=== PATIENT | male | born 1955 | race Caucasian/White ===

== ENCOUNTER 2021-03-03 05:39 | Day surgery (SDC) | payer OTHER ==
[~2021-03-03] VITALS: Ht 179.1 cm; Wt 88.0 kg
[~2021-03-03 05:39] MED LIST: ALBU1.25 NEB; ALBU90AE INH; AMLO2.5T5 PO; ASPI81TA45 PO; DIPH25CA61 PO; EPLE50TA3 PO; LABE100T6 PO; LISI40TA9 PO; PRAV40TA2 PO; TAMS-11 PO
[2021-03-03 06:13] VITALS: BP 138/75
[2021-03-03] MEDS ORDERED: MIDAZOLAM 1 MG/ML, 2ML ONE (06:29)
[2021-03-03] MEDS ORDERED: LACTATED RINGERS 1,000 ML IV SCH (06:30)
[2021-03-03] MEDS ORDERED: FENTANYL PF 250 MCG/5ML ONE (06:30)
[2021-03-03] MEDS ORDERED: CHLORHEXIDINE 15 ML UDC PO ONE (06:30)
[2021-03-03] MEDS ORDERED: PROPOFOL 10 MG/ML, 20ML ONE (06:34)
[2021-03-03] MEDS ORDERED: CEFAZOLIN 1,000 MG ONE (06:34)
[2021-03-03] MEDS ORDERED: GLYCOPYRROLATE 0.2MG/1ML, 5ML ONE (06:34)
[2021-03-03] MEDS ORDERED: NEOSTIGMINE 1 MG/ML, 10ML ONE (06:34)
[2021-03-03] MEDS ORDERED: ROCURONIUM 10MG/ML,5ML ONE (06:34)
[2021-03-03] MEDS ORDERED: morphine SULFATE 10 MG/ML, 1ML IVPush PRN (07:30)
[2021-03-03] MEDS ORDERED: ACETAMINOPHEN 325 MG TABLET PO PRN (07:30)
[2021-03-03] MEDS ORDERED: hydrALAzine 20 MG/ML, 1ML IV PRN (07:30)
[2021-03-03] MEDS ORDERED: FENTANYL PF 100 MCG/2ML IV PRN (07:30)
[2021-03-03] MEDS ORDERED: LABETALOL 5MG/ML, 20ML IV PRN (07:30)
[2021-03-03] MEDS ORDERED: HYDROmorphone 1 MG/ML, 1ML INJ IVPush PRN (07:30)
[2021-03-03] MEDS ORDERED: ONDANSETRON 2MG/ML, 2ML IVPush PRN (07:30)
[2021-03-03] MEDS ORDERED: OMNIPAQUE 350 MG/ML, 50 ML BOTTLE ONE (07:41)
[2021-03-03] MEDS: OXYcodone 5 MG/5 ML ORAL.SOL UDC PO PRN ×4 (10:01→18:45)
[2021-03-03] MEDS ORDERED: MEPERIDINE/PF 25MG/ML,1ML ONE ×2 (10:34→12:52)
[2021-03-03] MEDS: MEPERIDINE/PF 25MG/0.5ML IVPush PRN ×2 (10:40→13:00)
[2021-03-03] MEDS ORDERED: OPIUM/BELLADONNA SUPP.RECT 16.2-30 MG ONE (12:23)
[2021-03-03] MEDS ORDERED: OPIUM/BELLADONNA SUPP.RECT 16.2-30 MG PR ONE (12:30)
== END 2021-03-03 20:50 | disposition home or self-care (01) ==
LOC: OUT 05:39
PROVIDERS: ATTEND Urology
DX: N28.89 Other specified disorders of kidney and ureter (principal); C65.2 Malignant neoplasm of left renal pelvis; N20.0 Calculus of kidney; I10 Essential (primary) hypertension; J44.9 Chronic obstructive pulmonary disease, unspecified; E78.5 Hyperlipidemia, unspecified; Z20.822 Contact with and (suspected) exposure to COVID-19; Z79.82 Long term (current) use of aspirin; Z79.899 Other long term (current) drug therapy; Z87.891 Personal history of nicotine dependence; Z88.0 Allergy status to penicillin; Z88.2 Allergy status to sulfonamides
CPT/HCPCS: 52354; 74420; 87635; 88112; 88305; 93005; C1758; C1769; J0690; J2175; J2250; J2405; J2704; J2710; J3010; J7120; Q9967

== ENCOUNTER 2021-05-26 05:21 | Inpatient (IN) | payer OTHER ==
[~2021-05-26] VITALS: Ht 180.3 cm; Wt 84.2 kg
[2021-05-26] MEDS ORDERED: CHLORHEXIDINE 15 ML UDC ONE (06:10)
[2021-05-26] MEDS ORDERED: LACTATED RINGERS 1,000 ML IV SCH (06:30)
[2021-05-26 06:46] VITALS: BP 114/76
[2021-05-26] MEDS ORDERED: BUPIVACAINE/PF 0.25% ONE (06:52)
[2021-05-26] MEDS ORDERED: FLUORESCEIN SODIUM 500 MG/5 ML ONE (06:52)
[2021-05-26] MEDS ORDERED: EPINEPHRINE 1 MG/ML, 1ML ONE ×2 (06:52→08:28)
[2021-05-26] MEDS ORDERED: THROMBIN 5,000 UNIT VIAL TP ONE (06:52)
[2021-05-26] MEDS ORDERED: FENTANYL PF 250 MCG/5ML ONE ×3 (07:06→09:35)
[2021-05-26] MEDS ORDERED: LORazepam 2 MG/ML, 1ML IVPush PRN (07:30)
[2021-05-26] MEDS ORDERED: MEPERIDINE/PF 25MG/0.5ML IVPush PRN (07:30)
[2021-05-26] MEDS ORDERED: hydrALAzine 20 MG/ML, 1ML IV PRN (07:30)
[2021-05-26] MEDS ORDERED: OXYcodone 5 MG/5 ML ORAL.SOL UDC PO PRN (07:30)
[2021-05-26] MEDS ORDERED: METHOCARBAMOL 1,000 MG in DEXTROSE 5% 100 ML IV PRN (07:30)
[2021-05-26] MEDS ORDERED: ACETAMINOPHEN 325 MG TABLET PO PRN (07:30)
[2021-05-26] MEDS ORDERED: ONDANSETRON 2MG/ML, 2ML IVPush PRN (07:30)
[2021-05-26] MEDS ORDERED: LABETALOL 5MG/ML, 20ML IV PRN (07:30)
[2021-05-26] MEDS ORDERED: PROMETHAZINE 25 MG/ML, 1ML IVPush PRN (07:30)
[2021-05-26] MEDS ORDERED: EPHEDRINE 50 MG/ML, 1ML IVPush PRN (07:30)
[2021-05-26] MEDS ORDERED: PHENYLEPHRINE 10 MG/ML ONE (07:36)
[2021-05-26] MEDS ORDERED: SUGAMMADEX 200 MG/2 ML IVPush ONE (07:36)
[2021-05-26] MEDS ORDERED: SUCCINYLCHOLINE 20 MG/ML, 10ML ONE (08:27)
[2021-05-26] MEDS ORDERED: ONDANSETRON 2MG/ML, 2ML ONE (08:27)
[2021-05-26] MEDS ORDERED: CEFAZOLIN 1,000 MG ONE (08:27)
[2021-05-26] MEDS ORDERED: ROCURONIUM 10MG/ML,5ML ONE (08:27)
[2021-05-26] MEDS ORDERED: PROPOFOL 10 MG/ML, 20ML ONE (08:27)
[2021-05-26] MEDS ORDERED: NEOSTIGMINE 1 MG/ML, 10ML ONE (08:27)
[2021-05-26] MEDS ORDERED: GLYCOPYRROLATE 0.2MG/1ML, 5ML ONE (08:27)
[2021-05-26] MEDS ORDERED: DEXAMETHASONE 4 MG/ML, 1ML ONE (08:27)
[2021-05-26] MEDS ORDERED: VASOPRESSIN 20 UNIT/ML, 1ML ONE (08:28)
[2021-05-26 08:37] LABS: BASOPHILS % (AUTO) 1 % (0-1); EOSINOPHILS % (AUTO) 4 % (1-7); LYMPHOCYTES % (AUTO) 27 % (22-44); MEAN CORPUSCULAR HEMOGLOBIN 29.7 pg (27.5-34.5); MEAN CORPUSCULAR HGB CONC 33.9 g/dL (33.2-36.2); MEAN PLATELET VOLUME 7.9 fL (7.4-10.4); MONOCYTES % (AUTO) 10 % (2-9); NEUTROPHILS % (AUTO) 58 % (42-75); PLATELET COUNT 328 x10^3/uL (130-400); RED BLOOD COUNT 4.79 x10^6/uL (4.38-5.82); RED CELL DISTRIBUTION WIDTH 12.9 % (9.4-14.8)
[2021-05-26] MEDS ORDERED: HYDROmorphone 2 MG/ML, 1ML ONE (12:21)
[2021-05-26] MEDS ORDERED: FENTANYL PF 100 MCG/2ML ONE (12:21)
[2021-05-26] MEDS: FENTANYL PF 100 MCG/2ML IV PRN ×2 (12:23→12:28)
[2021-05-26] MEDS: HYDROmorphone 1 MG/ML, 1ML INJ IVPush PRN ×2 (12:45→12:53)
[2021-05-26] MEDS ORDERED: OXYcodone 5 MG/5 ML ORAL.SOL UDC ONE (12:45)
[2021-05-26] MEDS ORDERED: ONDANSETRON 2MG/ML, 2ML IV PRN (15:00)
[2021-05-26] MEDS ORDERED: OPIUM/BELLADONNA SUPP.RECT 16.2-30 MG PR PRN (15:00)
[2021-05-26] MEDS ORDERED: ALBUTEROL SULFATE 2.5 MG/3 ML NPPB PRN (15:00)
[2021-05-26] MEDS: POTASSIUM CHLORIDE 20 MEQ in SODIUM CHLORIDE 0.45% 1,000 ML IV SCH (17:36)
[2021-05-26] MEDS: CEFAZOLIN PMX 1GM/50ML 50 ML IVPB SCH (17:36)
[2021-05-26 19:33] VITALS: BP 126/78
[2021-05-26] MEDS: DIPHENHYDRAMINE 25 MG CAPSULE PO PRN (20:35)
[2021-05-26] MEDS: LISINOPRIL 40 MG TABLET PO SCH (20:35)
[2021-05-27 00:34] VITALS: BP 105/60
[2021-05-27] MEDS: CEFAZOLIN PMX 1GM/50ML 50 ML IVPB SCH (01:54)
[2021-05-27] MEDS: POTASSIUM CHLORIDE 20 MEQ in SODIUM CHLORIDE 0.45% 1,000 ML IV SCH ×3 (03:01→17:59)
[2021-05-27] MEDS ORDERED: PROCHLORPERAZINE 10MG TABLET PO PRN (03:30)
[2021-05-27] MEDS ORDERED: DIPHENHYDRAMINE 50 MG CAPSULE PO ONE (03:30)
[2021-05-27] MEDS ORDERED: DIPHENHYDRAMINE 50 MG CAPSULE ONE (03:33)
[2021-05-27 04:20] VITALS: BP 97/56
[2021-05-27 06:03] LABS: ANION GAP 8 mmol/L (5-15); CHLORIDE 108 mmol/L (98-107); CREATININE 1.71 mg/dL (0.7-1.3)
[2021-05-27 07:00] VITALS: BP 96/56
[2021-05-27] MEDS: LISINOPRIL 40 MG TABLET PO SCH ×2 (09:00→21:20)
[2021-05-27] MEDS: EPLERENONE 50 MG TABLET PO SCH (09:00)
[2021-05-27] MEDS ORDERED: LABETALOL 100 MG TABLET PO SCH (09:00)
[2021-05-27] MEDS: AMLODIPINE 2.5 MG TABLET PO SCH (09:00)
[2021-05-27] MEDS: TAMSULOSIN 0.4 MG CAP.ER.24H PO SCH (10:24)
[2021-05-27] MEDS: PRAVASTATIN 40 MG TABLET PO SCH (10:24)
[2021-05-27] MEDS: HYDROcodone/APAP 10/325 MG TABLET PO PRN ×4 (11:59→21:41)
[2021-05-27 12:21] VITALS: BP 102/61
[2021-05-27 20:01] VITALS: BP 106/62
[2021-05-27] MEDS: DIPHENHYDRAMINE 25 MG CAPSULE PO PRN (21:20)
[2021-05-27] MEDS: SODIUM CHLORIDE FLUSH 10ML SYR IVF SCH (21:21)
[2021-05-27] MEDS ORDERED: ALBUTEROL HFA 90 MCG/SPRAY INH PRN (23:00)
[2021-05-28 00:09] VITALS: BP 102/55
[2021-05-28] MEDS: POTASSIUM CHLORIDE 20 MEQ in SODIUM CHLORIDE 0.45% 1,000 ML IV SCH (00:45)
[2021-05-28] MEDS: HYDROcodone/APAP 10/325 MG TABLET PO PRN ×3 (02:07→09:39)
[2021-05-28 06:00] LABS: ANION GAP 6 mmol/L (5-15); CALCIUM 8.6 mg/dL (8.5-10.1); CHLORIDE 109 mmol/L (98-107)
[2021-05-28 06:01] LABS: CREATININE 1.83 mg/dL (0.7-1.3)
[2021-05-28] MEDS: LISINOPRIL 40 MG TABLET PO SCH (08:58)
[2021-05-28] MEDS: PRAVASTATIN 40 MG TABLET PO SCH (08:58)
[2021-05-28] MEDS: EPLERENONE 50 MG TABLET PO SCH (08:58)
[2021-05-28] MEDS: SODIUM CHLORIDE FLUSH 10ML SYR IVF SCH (08:59)
[2021-05-28] MEDS: AMLODIPINE 2.5 MG TABLET PO SCH (08:59)
[2021-05-28] MEDS: TAMSULOSIN 0.4 MG CAP.ER.24H PO SCH (08:59)
[2021-05-28] MEDS ORDERED: LABETALOL 100 MG TABLET PO SCH (09:00)
[2021-05-28 09:01] VITALS: BP 118/66
== END 2021-05-28 10:51 | disposition home or self-care (01) | DRG 655 ==
LOC: ORIP 05:21 → 4NE 14:06
PROVIDERS: ADMIT Urology; ATTEND Urology
PROC: 0TT14ZZ Resection of Left Kidney, Percutaneous Endoscopic Approach (ICD-10-PCS; 2021-05-26)
PROC: 0TB74ZZ Excision of Left Ureter, Percutaneous Endoscopic Approach (ICD-10-PCS; 2021-05-26)
PROC: 07BD4ZZ Excision of Aortic Lymphatic, Percutaneous Endoscopic Approach (ICD-10-PCS; 2021-05-26)
PROC: 8E0W4CZ Robotic Assisted Procedure of Trunk Region, Percutaneous Endoscopic Approach (ICD-10-PCS; 2021-05-26)
PROC: 0TBB4ZZ Excision of Bladder, Percutaneous Endoscopic Approach (ICD-10-PCS; principal; 2021-05-26 07:30)
DX: C65.2 Malignant neoplasm of left renal pelvis (principal); I12.9 Hypertensive chronic kidney disease with stage 1 through stage 4 chronic kidney disease, or unspecified chronic kidney disease; E78.00 Pure hypercholesterolemia, unspecified; J44.9 Chronic obstructive pulmonary disease, unspecified; K66.0 Peritoneal adhesions (postprocedural) (postinfection); N18.9 Chronic kidney disease, unspecified; N40.1 Benign prostatic hyperplasia with lower urinary tract symptoms; Z87.891 Personal history of nicotine dependence; Z79.899 Other long term (current) drug therapy; R59.0 Localized enlarged lymph nodes
CPT/HCPCS: 36415; Q0164; 71045; 80048; 82962; 83036; 85014; 85018; 85025; 86850; 86900; 86923; 88307; G0378; J0171; J0690; J1100; J1170; J2270; J2405; J2704; J2710; J3010; J3480; C1760; J0330; J2370; J2800; J7120; Q0163